=== PATIENT | female | born 1945 | race Caucasian/White ===

== ENCOUNTER → 2016-06-22 | Outpatient (CLI) | payer MEDICARE, BC ==
[~2016-06-22] MED LIST: AZIT250T6 PO; BECL8.7A5 IH; CARI350T PO; CHOL50009 PO; CICL12.52 NS; ESOM40SU PO; FURO-110 PO; GABA300C16 PO; IBAN150T4 PO; KEPPRA PO; METO-448 PO; POTA8CAP PO; PRAV40TA76 PO; PROVIGIL; TIOT18CA IH; ZOLP10TA PO; [UNRECOGNIZED DRUG - CODE] BC; [UNRECOGNIZED DRUG - CODE] GTB; [UNRECOGNIZED DRUG - CODE] PO; [UNRECOGNIZED DRUG - REMARK]
== END | disposition home or self-care (01) ==
LOC: PUL 11:04
PROVIDERS: ATTEND Internal Medicine
DX: J44.9 Chronic obstructive pulmonary disease, unspecified (principal)
CPT/HCPCS: 94060; 94726; 94729

== ENCOUNTER 2016-08-05 11:49 | Day surgery (SDC) | payer MEDICARE, BC ==
[~2016-08-05] VITALS: Ht 147.3 cm; Wt 46.6 kg
[2016-08-05 12:36] VITALS: Ht 147.3 cm; Wt 46.6 kg
[2016-08-05] MEDS ORDERED: PROPOFOL 20 ML ONE (14:07)
[2016-08-05] MEDS ORDERED: LIDOCAINE 2% (SDV) 5 ML INJ ONE (14:07)
[2016-08-05] MEDS ORDERED: PROVENTIL HFA 6.7GM INHALER ONE (14:26)
[2016-08-05 14:32] VITALS: BP 144/65; PULSE 67; RESP 18
--- NOTE | 2016-08-05 15:05 | OPR ---
Date/Time of Note Date/Time of Note DATE: 08/05/16 TIME: 14:53 Operative Report Free Text/Dictation 70 yo fem with ruq pain pt has a glucose avid lesion r lobe and c/o ruq pain an olympus egd scope was advanced into upper pharinx after she was brought to a state of cooperative somnolence by Dr Gann the uper and lower esoph were inflamed stoamsch was enetereed and it was inflamed Bx taken to r/o H pylori the Doudem was WNL Final DX poss Barrets at 38 cm Bx x 2 taken given pts overall clinicaql condition and known glucose avid lesion on PET scan would not worri about possible Barrets no oobvious expalantion for abd pain would cont empiric PPI's Estimated Blood Loss: 10 - 50 ml's Copies To: CC: CYNTHIA PATE MD, MICHAEL I MD Aug 05, 2016 15:03
== END 2016-08-05 16:30 | disposition home or self-care (01) ==
LOC: GIL 11:49
PROVIDERS: ATTEND Internal Medicine Gastroenterology
DX: K21.0 Gastro-esophageal reflux disease with esophagitis (principal); K22.70 Barrett's esophagus without dysplasia; J44.9 Chronic obstructive pulmonary disease, unspecified
CPT/HCPCS: 88305; 88312; 88313

== ENCOUNTER → 2017-08-19 | Outpatient (CLI) | END | disposition home or self-care (01) ==

== ENCOUNTER → 2018-09-11 | Outpatient (CLI) | payer MEDICARE, OTHER, BC ==
[~2018-09-11] MED LIST changes: +ALBUTEROL 0.083% (NEB) 2.5 MG/3 ML AMP ONE; +AZIT250T13 PO; -AZIT250T6 PO; -CICL12.52 NS; -FURO-110 PO; +IBAN150T16 PO; -IBAN150T4 PO; -KEPPRA PO; -METO-448 PO; -POTA8CAP PO; -PROVIGIL; -[UNRECOGNIZED DRUG - CODE] GTB; -[UNRECOGNIZED DRUG - REMARK]
== END | disposition home or self-care (01) ==
LOC: PUL 09:53
PROVIDERS: ATTEND Internal Medicine
DX: J44.9 Chronic obstructive pulmonary disease, unspecified (principal)
CPT/HCPCS: 94060; 94664; 94726; 94729